=== PATIENT | female | born 1995 | race Caucasian/White ===

== ENCOUNTER 2017-02-11 01:26 | Inpatient (IN) | payer OTHER ==
[2017-02-11] MEDS ORDERED: IBUPROFEN 600 MG TAB PO (02:00)
[2017-02-11] MEDS ORDERED: BUTORPHANOL 2 MG INJ IV (02:00)
[2017-02-11] MEDS ORDERED: MISOPROSTOL 200 MCG TAB PR ×2 (02:00→06:00)
[2017-02-11] MEDS ORDERED: OXYTOCIN 30 UNITS/LR 500 ML IV ×2 (02:00→06:00)
[2017-02-11] MEDS ORDERED: METHYLERGONOVINE 0.2 MG INJ IM ×2 (02:00→06:00)
[2017-02-11] MEDS ORDERED: CARBOPROST 250 MCG INJ IM ×2 (02:00→06:00)
[2017-02-11] MEDS: LACTATED RINGER'S 1,000 ML IV (02:20)
[2017-02-11 03:56] LABS: ADD MAN DIFF? NO
[2017-02-11 04:02] LABS: BASOPHILS % 0.3 % (0.0-2.0); EOSINOPHILS # 0.1 10^3/ul (0.0-0.5); EOSINOPHILS % 0.6 % (0.0-7.0); HEMATOCRIT 33.8 % (37.0-47.0); HEMOGLOBIN 11.9 g/dl (12.0-16.0); LYMPHOCYTES # 1.8 10^3/ul (0.8-2.9); LYMPHOCYTES % 16.3 % (18.0-55.0); MEAN CORPUSCULAR HEMOGLOBIN 32.2 pg (29.0-33.0); MEAN CORPUSCULAR HGB CONC 35.2 g/dl (32.0-37.0); MEAN CORPUSCULAR VOLUME 91.4 fl (72.0-104.0); MONOCYTE # 0.7 10^3/ul (0.3-0.9); NEUTROPHIL # 8.2 10^3/ul (1.6-7.5); NEUTROPHILS % 75.5 % (30.0-74.0); PLATELET COUNT 235 10^3/UL (140-415); RED CELL DISTRIBUTION WIDTH 11.9 % (11.5-14.5)
[2017-02-11 04:02] LABS: WHITE BLOOD COUNT 10.8 10^3/ul (4.8-10.8)
[2017-02-11 04:19] LABS: INR 0.91; PROTIME 12.3 Sec (11.9-14.9)
[2017-02-11 04:25] LABS: PARTIAL THROMBOPLASTIN TIME 30.9 Sec (25.0-35.0)
[2017-02-11] MEDS: OXYTOCIN 30 UNITS/LR 500 ML IV ×2 (04:40→05:11)
[2017-02-11 04:55] LABS: HEPATITIS B SURFACE ANTIGEN NEGATIVE (NEGATIVE)
[2017-02-11 05:11] LABS: AADO2 Cord Arterial 66.3 mmHg; Arterial Cord Blood pCO2 56.5 mmHG (25-50); CBA Base Excess -7.5 mmol/L; CBA COHb 0.3 %; CBA Oxygen Sat 29.9 mmHG; CBA Total Hemglobin 16.2 g/dl; Cord Blood Arterial pO2 15.8 mmHG (15.0-45.0); Fraction OxyHgb Cord Arterial 29.4 %; MODE ROOM AIR; MetHgb Cord Arterial 1.5 %; Site CORD
[2017-02-11 05:12] LABS: CBV Base Excess -5.7 mmol/L; CBV COHb 0.4 %; CBV Oxygen Sat 40.7 mmHG; CBV Total Hemglobin 16.5 g/dl; Cord Blood Venous pO2 18.5 mmHG (15.0-45.0); MODE ROOM AIR; MetHgb Cord Venous 1.4 %; Sample Type Blood venous; Site CORD
[2017-02-11] MEDS: LIDOCAINE 1% (MPF) 30 ML INJ INJ (05:12)
[2017-02-11] MEDS: LACTATED RINGER'S 1,000 ML IV* ×2 (05:47→13:47)
[2017-02-11] MEDS ORDERED: ZOLPIDEM 5 MG TAB PO (06:00)
[2017-02-11] MEDS ORDERED: HYDROCODONE/APAP (5/325) TAB PO (06:00)
[2017-02-11] MEDS ORDERED: DIPHENHYDRAMINE 25 MG CAP PO (06:00)
[2017-02-11] MEDS ORDERED: ONDANSETRON 4 MG INJ IV (06:00)
[2017-02-11] MEDS: IBUPROFEN 600 MG TAB PO ×4 (06:40→23:20)
[2017-02-11] MEDS: WITCH HAZEL/GLYCERIN PAD PR (06:40)
[2017-02-11] MEDS: SENNA/DOCUSATE NA (8.6MG/50MG) TAB PO ×2 (08:45→21:13)
[2017-02-11 11:24] LABS: HEMATOCRIT 32.7 % (37.0-47.0); HEMOGLOBIN 11.2 g/dl (12.0-16.0)
[2017-02-11] MEDS: NA PHOSPHATE/BIPHOS 133 ML ENEMA PR (12:00)
[2017-02-11 22:34] LABS: RAPID PLASMA REAGIN NONREACTIVE (NR)
[2017-02-12] MEDS: IBUPROFEN 600 MG TAB PO ×2 (05:56→13:06)
[2017-02-12] MEDS: SENNA/DOCUSATE NA (8.6MG/50MG) TAB PO (10:32)
[2017-02-12] MEDS: DIPHTH/TET/ACEL PERTUSS (ADULT) 0.5 ML VIAL IM* (16:46)
[2017-02-13] MEDS ORDERED: DIPHTH/TET/ACEL PERTUSS (ADULT) 0.5 ML VIAL IM* (09:00)
[2017-02-13] MEDS ORDERED: MEASLES,MUMPS,RUBELLA VACCINE INJ SC* (09:00)
[2017-02-13] MEDS ORDERED: VARICELLA VACCINE LIVE/PF 1,350 UNIT/0.5 ML ML SC* (09:00)
== END 2017-02-12 17:35 | disposition home or self-care (01) | DRG 774 ==
LOC: OBT 01:26 → L-D 01:26 → OBT 02:00 → L-D 02:00 → PP1 06:36
PROVIDERS: Obstetrics & Gynecology
PROC: 10E0XZZ Delivery of Products of Conception, External Approach (ICD-10-PCS; principal; 2017-02-11)
PROC: 0HQ9XZZ Repair Perineum Skin, External Approach (ICD-10-PCS; 2017-02-11)
DX: O45.93 Premature separation of placenta, unspecified, third trimester (principal); O76 Abnormality in fetal heart rate and rhythm complicating labor and delivery; O70.0 First degree perineal laceration during delivery; Z3A.37 37 weeks gestation of pregnancy; Z37.0 Single live birth
CPT/HCPCS: 36415; 36600; 76815; 82803; 85014; 85018; 85025; 85610; 85730; 86592; 86900; 86901; 87340; 88307; 90715; 99464

== ENCOUNTER 2018-02-02 21:46 | Emergency (ER) | payer MEDICAID, OTHER ==
[2018-02-02] MEDS: FAMOTIDINE 20 MG TAB PO (23:33)
[2018-02-02] MEDS: ONDANSETRON (ODT) 4 MG TAB ODT (23:33)
[2018-02-02] MEDS: DEXAMETHASONE 10 MG/ML 1 ML INJ IM (23:34)
[2018-02-02] MEDS: DIPHENHYDRAMINE 50 MG INJ IM (23:34)
== END 2018-02-03 00:35 | disposition home or self-care (01) ==
LOC: FTE 21:46
DX: L50.0 Allergic urticaria (principal)
CPT/HCPCS: 96372; 99284-25

== ENCOUNTER 2018-03-07 11:28 | Emergency (ER) | payer MEDICAID ==
[2018-03-07] MEDS: ACETAMINOPHEN 325 MG TAB PO (13:09)
== END 2018-03-07 13:35 | disposition home or self-care (01) ==
LOC: FTE 13:35
DX: J06.9 Acute upper respiratory infection, unspecified (principal)
CPT/HCPCS: 99283; Z7502